=== PATIENT | female | born 1985 | race Caucasian/White ===

== ENCOUNTER 2016-12-11 09:26 | Outpatient (CLI) | payer OTHER ==
--- NOTE | 2016-12-11 17:39 | Diagnostic Imaging Report ---
[facility] [id number] [facility] [address] [place] [address]. [id number] Report Submission Date: Dec 11, 2016 5:20:36 PM [employer] Patient Study Name: KODAK TAYLOR Date: Dec 11, 2016 9:29:34 AM [employer]ER Modality Type: MR Gender: F Description: MRI UP EXT JNT W/O CONTRAST : [birth year] Institution: [facility] Physician: GAVINO TURK Magnetic resonance imaging of the right wrist without contrast History: Dorsal wrist pain and popping after basketball injury 2 months ago Findings: Multiplanar magnetic resonance imaging of the right wrist is performed without contrast. Bone marrow signal is normal. Musculotendinous structures are unremarkable. There is no fracture, joint effusion, or dislocation. Visualized intrinsic wrist ligaments, triangular fibrocartilage complex, and lunotriquetral ligament appear intact. The scapholunate space is slightly widened but the scapholunate ligament appears intact. Impression: 1. Mild scapholunate joint space widening suggests ligamentous injury. However, visualized portions of the scapholunate ligament appear intact. 2. No evidence of fracture or joint effusion. Electronically signed on Dec 11, 2016 5:20:36 PM [employer] OFFICER by: Armond CHURCHILL
== END 2016-12-11 09:27 ==
LOC: RAD 09:26
PROVIDERS: ATTEND Family Medicine
DX: M25.531 Pain in right wrist (principal)
CPT/HCPCS: 73221

== ENCOUNTER 2016-12-30 08:43 | Outpatient (CLI) | payer OTHER ==
[2016-12-30 09:14] LABS: BASOPHILS % 0.4 (0.0-1.5); EOSINOPHILS % 0.7 % (0.0-6.8); LYMPHOCYTES # 1.3 # k/uL (0.6-4.0); MEAN CORPUSCULAR HEMOGLOBIN 30.9 pg (28.0-34.0); MONOCYTES # 0.3 # k/uL (0.0-0.9); MONOCYTES % 6.2 % (0.0-11.0); NEUTROPHILS # 2.4 # k/uL (1.4-7.7)
[2016-12-30 10:05] LABS: eGFR (African) > 60; eGFR (Non-African) > 60
== END 2016-12-30 08:44 ==
LOC: LAB 08:43
PROVIDERS: ATTEND Nurse Practitioner Psychiatric/Mental Health
DX: Z51.81 Encounter for therapeutic drug level monitoring (principal); Z79.899 Other long term (current) drug therapy
CPT/HCPCS: 36415; 80053; 80156; 82306; 85025

== ENCOUNTER 2017-06-30 08:32 | Outpatient (CLI) | payer OTHER ==
[2017-06-30 09:28] LABS: BASOPHILS % 1.2 (0.0-1.5); EOSINOPHILS % 0.8 % (0.0-6.8); MEAN CORPUSCULAR HEMOGLOBIN 30.7 pg (28.0-34.0); MONOCYTES % 6.3 % (0.0-11.0); NEUTROPHILS # 2.9 # k/uL (1.4-7.7)
[2017-06-30 09:43] LABS: eGFR (African) > 60; eGFR (Non-African) > 60
== END 2017-06-30 08:42 ==
LOC: LAB 08:32
PROVIDERS: ATTEND Nurse Practitioner Psychiatric/Mental Health
DX: Z51.81 Encounter for therapeutic drug level monitoring (principal)
CPT/HCPCS: 36415; 80053; 80156; 82306; 85025

== ENCOUNTER 2017-12-29 08:30 | Outpatient (CLI) | payer OTHER ==
[2017-12-29 10:12] LABS: EOSINOPHILS % 0.4 % (0.0-6.8); MEAN CORPUSCULAR HEMOGLOBIN 29.9 pg (28.0-34.0); MEAN CORPUSCULAR VOLUME 95.5 fl (80.0-100.0); NEUTROPHILS # 1.8 # k/uL (1.4-7.7)
[2017-12-29 11:01] LABS: eGFR (African) > 60; eGFR (Non-African) > 60
== END 2017-12-29 08:31 ==
LOC: LAB 08:30
PROVIDERS: ATTEND Nurse Practitioner Psychiatric/Mental Health
DX: Z79.899 Other long term (current) drug therapy (principal); Z51.81 Encounter for therapeutic drug level monitoring
CPT/HCPCS: 36415; 80053; 80156; 82306; 85025

== ENCOUNTER 2018-07-03 09:16 | Outpatient (CLI) | payer OTHER ==
[2018-07-03 09:45] LABS: BASOPHILS % 0.3 (0.0-1.5); EOSINOPHILS % 0.7 % (0.0-6.8); MEAN CORPUSCULAR HEMOGLOBIN 30.2 pg (28.0-34.0); MEAN CORPUSCULAR VOLUME 94.6 fl (80.0-100.0); MONOCYTES % 5.3 % (0.0-11.0); NEUTROPHILS # 3.3 # k/uL (1.4-7.7)
[2018-07-03 10:19] LABS: eGFR (African) > 60; eGFR (Non-African) > 60
== END 2018-07-03 13:58 ==
LOC: LAB 09:16
PROVIDERS: ATTEND Psychiatry & Neurology Psychiatry
DX: Z51.81 Encounter for therapeutic drug level monitoring (principal); Z79.899 Other long term (current) drug therapy
CPT/HCPCS: 36415; 80053; 80156; 85025